=== PATIENT | male | born 1985 | race Caucasian/White ===

== ENCOUNTER 2017-03-11 14:10 | Inpatient (IN) | payer SELFPAY ==
[~2017-03-11 14:10] MED LIST: CHLO25 PO
[2017-03-11] MEDS ORDERED: SODIUM CHLORIDE 0.9% FLUSH 10 ML FLUSH IVF PRN (15:00)
[2017-03-11] MEDS ORDERED: LORazepam 2 MG/ML VIAL IV PUSH ONE (15:00)
[2017-03-11 15:30] VITALS: BP 127/81; PULSE 110; RESP 16; TEMP 99; O2SAT 98
--- NOTE | 2017-03-11 15:35 | PD ---
HPI Chief Complaint: Seizure Time Seen by Provider: 15:23 Travel History International Travel<30 days: No Contact w/Intl Traveler<30days: No History of Present Illness HPI Patient is a 31-year-old male presenting to emergency for evaluation of a possible seizure. Patient states that he was walking on a when he this morning when he suddenly felt out of it. He states he did not fall to the ground was on the ground when he aroused. Patient reports drinking alcohol on a daily basis, normally 812 beers however over the last day he has had 24. He has not had any alcohol today and states that he was walking to the convenience store contemplating whether or not to buy more alcohol or get into rehabilitation. Patient states that he does feel depressed but denies any suicidal or homicidal ideations. He states he considered suicide in high school but never attempted it. He does report his father passing away recently which is upsetting to him. Patient currently denies any chest pain, shortness of breath, headache, neck pain, back pain. He reports vomiting and dry heaving yesterday, he complains of mild epigastric pain. [facility] Past Medical History Diminished Hearing: No Seizures: Yes Social History Alcohol Use: Yes (2 DRINKS/DAILY) Tobacco Use: No Substance Use: Yes (MARIJUANA OCC) Allergies-Medications (Allergen,Severity, Reaction): Coded Allergies: No Known Allergies (Verified Adverse Reaction, Unknown, 03/11/17) Reported Meds & Prescriptions Reported Meds & Active Scripts Active No Active Prescriptions or Reported Medications Review of Systems Except as stated in HPI: all other systems reviewed are Neg General / Constitutional: No: Fever Eyes: No: Blurred Vision HENT: No: Headaches, Neck Pain Cardiovascular: No: Chest Pain or Discomfort Respiratory: No: Shortness of Breath Gastrointestinal: Positive: Nausea, Vomiting, Abdominal Pain (epigastric) Genitourinary: No: Dysuria Musculoskeletal: No: Myalgias Skin: Positive Rash Neurologic: Positive: Syncope (possible seizure), No: Focal Abnormalities, Change in Mentation, Sensory Disturbance Physical Exam Narrative GENERAL: Well-developed, well-nourished, alert male. Resting comfortably in no acute distress. SKIN: Warm and dry. Petechial rash to patient's face. HEAD: Atraumatic. Normocephalic. EYES: Pupils equal and round. No scleral icterus. No injection or drainage. ENT: No nasal bleeding or discharge. Mucous membranes pink and moist. NECK: Trachea midline. No JVD. CARDIOVASCULAR: Mildly tachycardic RESPIRATORY: No accessory muscle use. Clear to auscultation. Breath sounds equal bilaterally. GASTROINTESTINAL: Abdomen soft, mildly tender to palpation epigastric region, nondistended. Hepatic and splenic margins not palpable. Positive bowel sounds, no rebound, no guarding. MUSCULOSKELETAL: Extremities without clubbing, cyanosis, or edema. No obvious deformities. NEUROLOGICAL: Awake and alert. No obvious cranial nerve deficits. Motor grossly within normal limits. Five out of 5 muscle strength in the arms and legs. Normal speech. PSYCHIATRIC: Appropriate mood and affect; insight and judgment normal. Data Data Last Documented VS Vital Signs Date Time Temp Pulse Resp B/P (MAP) Pulse Ox O2 Delivery O2 Flow Rate FiO2 03/11/17 17:26 97.9 89 16 124/75 (91) 98 Room Air Orders Orders Complete Blood Count With Diff (03/11/17 14:56) Comprehensive Metabolic Panel (03/11/17 14:56) Iv Access Insert/Monitor (03/11/17 14:56) Ecg Monitoring (03/11/17 14:56) Psych Screen (03/11/17 14:56) Sodium Chloride 0.9% Flush (Ns Flush) (03/11/17 15:00) Lorazepam Inj (Ativan Inj) (03/11/17 15:00) Drug Screen, Random Urine (03/11/17 14:56) Alcohol (Ethanol) (03/11/17 14:56) Salicylates (Aspirin) (03/11/17 14:56) Tylenol (Acetaminophen) (03/11/17 14:56) Ct Brain W/O Iv Contrast(Rout) (03/11/17 ) Electrocardiogram (03/11/17 ) Sodium Chlor 0.9% 1000 Ml Inj (Ns 1000 M (03/11/17 16:00) Urinalysis - C+S If Indicated (03/11/17 17:05) Lipase (03/11/17 17:05) Admit Order (Ed Use Only) (03/11/17 18:40) Labs Laboratory Tests Test 03/11/17 16:00 03/11/17 17:11 White Blood Count 21.9 TH/MM3 Red Blood Count 4.85 MIL/MM3 Hemoglobin 15.8 GM/DL Hematocrit 46.5 % Mean Corpuscular Volume 95.9 FL Mean Corpuscular Hemoglobin 32.6 PG Mean Corpuscular Hemoglobin Concent 34.0 % Red Cell Distribution Width 13.6 % Platelet Count 303 TH/MM3 Mean Platelet Volume 7.7 FL Neutrophils (%) (Auto) 90.6 % Lymphocytes (%) (Auto) 3.2 % Monocytes (%) (Auto) 5.9 % Eosinophils (%) (Auto) 0.1 % Basophils (%) (Auto) 0.2 % Neutrophils # (Auto) 19.8 TH/MM3 Lymphocytes # (Auto) 0.7 TH/MM3 Monocytes # (Auto) 1.3 TH/MM3 Eosinophils # (Auto) 0.0 TH/MM3 Basophils # (Auto) 0.0 TH/MM3 CBC Comment DIFF FINAL Differential Comment Total Protein 8.5 GM/DL Alkaline Phosphatase 64 U/L Total Bilirubin 1.2 MG/DL Anion Gap 10 MEQ/L Estimat Glomerular Filtration Rate 82 ML/MIN Salicylates Level LESS THAN 1.7 MG/DL Acetaminophen Level LESS THAN 2.0 MCG/ML Ethyl Alcohol Level LESS THAN 3 MG/DL Urine Color YELLOW Urine Turbidity HAZY Urine pH 5.5 Urine Specific [place] 1.024 Urine Protein 100 mg/dL Urine Glucose (UA) NEG mg/dL Urine Ketones 40 mg/dL Urine Occult Blood TRACE Urine Nitrite NEG Urine Bilirubin NEG Urine Urobilinogen LESS THAN 2.0 MG/DL Urine Leukocyte Esterase NEG Urine RBC 1 /hpf Urine WBC 4 /hpf Urine Squamous Epithelial Cells <1 /hpf Urine Amorphous Sediment OCC Urine Hyaline Casts 6 /lpf Urine Mucus FEW /lpf Microscopic Urinalysis Comment CULT NOT INDICATED Urine Opiates Screen NEG Urine Barbiturates Screen NEG Urine Amphetamines Screen NEG Urine Benzodiazepines Screen NEG Urine Cocaine Screen NEG Urine Cannabinoids Screen NEG MDM Medical Decision Making Medical Screen Exam Complete: Yes Emergency Medical Condition: Yes Interpretation(s) Last Impressions Head CT 03/11/17 0000 Signed Impressions: Service Date/Time: Saturday, March 11, 2017 16:54 - CONCLUSION: Negative noncontrast head CT. Sahil Prater MD Laboratory Tests Test 03/11/17 16:00 03/11/17 17:11 White Blood Count 21.9 TH/MM3 Red Blood Count 4.85 MIL/MM3 Hemoglobin 15.8 GM/DL Hematocrit 46.5 % Mean Corpuscular Volume 95.9 FL Mean Corpuscular Hemoglobin 32.6 PG Mean Corpuscular Hemoglobin Concent 34.0 % Red Cell Distribution Width 13.6 % Platelet Count 303 TH/MM3 Mean Platelet Volume 7.7 FL Neutrophils (%) (Auto) 90.6 % Lymphocytes (%) (Auto) 3.2 % Monocytes (%) (Auto) 5.9 % Eosinophils (%) (Auto) 0.1 % Basophils (%) (Auto) 0.2 % Neutrophils # (Auto) 19.8 TH/MM3 Lymphocytes # (Auto) 0.7 TH/MM3 Monocytes # (Auto) 1.3 TH/MM3 Eosinophils # (Auto) 0.0 TH/MM3 Basophils # (Auto) 0.0 TH/MM3 CBC Comment DIFF FINAL Differential Comment Total Protein 8.5 GM/DL Alkaline Phosphatase 64 U/L Total Bilirubin 1.2 MG/DL Anion Gap 10 MEQ/L Estimat Glomerular Filtration Rate 82 ML/MIN Lipase 87 U/L Salicylates Level LESS THAN 1.7 MG/DL Acetaminophen Level LESS THAN 2.0 MCG/ML Ethyl Alcohol Level LESS THAN 3 MG/DL Urine Color YELLOW Urine Turbidity HAZY Urine pH 5.5 Urine Specific [place] 1.024 Urine Protein 100 mg/dL Urine Glucose (UA) NEG mg/dL Urine Ketones 40 mg/dL Urine Occult Blood TRACE Urine Nitrite NEG Urine Bilirubin NEG Urine Urobilinogen LESS THAN 2.0 MG/DL Urine Leukocyte Esterase NEG Urine RBC 1 /hpf Urine WBC 4 /hpf Urine Squamous Epithelial Cells <1 /hpf Urine Amorphous Sediment OCC Urine Hyaline Casts 6 /lpf Urine Mucus FEW /lpf Microscopic Urinalysis Comment CULT NOT INDICATED Urine Opiates Screen NEG Urine Barbiturates Screen NEG Urine Amphetamines Screen NEG Urine Benzodiazepines Screen NEG Urine Cocaine Screen NEG Urine Cannabinoids Screen NEG Vital Signs Date Time Temp Pulse Resp B/P (MAP) Pulse Ox O2 Delivery O2 Flow Rate FiO2 03/11/17 17:26 97.9 89 16 124/75 (91) 98 Room Air 03/11/17 16:14 96 17 132/78 (96) 99 Room Air 03/11/17 16:05 93 16 97 Room Air 03/11/17 15:30 99.0 110 16 127/81 (96) 98 Differential Diagnosis Seizure-like activity versus syncope versus arrhythmia versus intoxication versus electrolyte abnormality versus withdrawal versus other Narrative Course Patient presented for evaluation after seizure-like activity/syncopal episode. He is a chronic alcoholic, he is requesting rehabilitation he reports depression but no suicidal ideations. He reports epigastric abdominal pain but no other complaints at this time. Labs and imaging ordered and pending. CBC with a white count 21.9 with left shift. Chemistry is not completely resolved in the computer however lab was able to provide a printout. Sodium 133, no other acute abnormalities noted this time. Urine drug screen is negative Salicylate, acetaminophen and alcohol are all negative. Patient was given IV fluids, Zofran, Ativan. He has been resting comfortably but continues to state he feels off. Patient will be admitted under observation due to the seizure-like activity/syncopal episode. Discussed with Dr. Linn who accepted admission, orders placed. Diagnosis Primary Impression: Seizure-like activity Additional Impression: Alcoholism Admitting Information Admitting Physician Requests: Observation Scripts No Active Prescriptions or Reported Meds Condition: Stable Alisha Flores [facility] Mar 11, 2017 15:35
[2017-03-11] MEDS ORDERED: SODIUM CHLOR 0.9% 1000 ML INJ 1,000 ML IV ONE (16:00)
[2017-03-11 16:14] VITALS: BP 132/78; PULSE 96; RESP 17; O2SAT 99
[2017-03-11 16:45] LABS: AUTOMATED NEUTROPHIL # 19.8 TH/MM3 (1.8-7.7); BASOPHIL % 0.2 % (0.0-2.0); EOSINOPHIL % 0.1 % (0.0-4.0); HEMATOCRIT 46.5 % (39.0-51.0); HEMO FLAGS DIFF FINAL; LYMPH % 3.2 % (9.0-44.0); LYMPHOCYTE # 0.7 TH/MM3 (1.0-4.8); MEAN CELL VOLUME 95.9 FL (80.0-100.0); MEAN CORPUSCULAR HEMOGLOBIN 32.6 PG (27.0-34.0); MONO % 5.9 % (0.0-8.0); NEUT % 90.6 % (16.0-70.0); PLATELET COUNT 303 TH/MM3 (150-450); RED BLOOD COUNT 4.85 MIL/MM3 (4.50-5.90); RED CELL DISTRIBUTION WIDTH 13.6 % (11.6-17.2); WHITE BLOOD COUNT 21.9 TH/MM3 (4.0-11.0)
[2017-03-11 17:02] LABS: ALT (GPT) 26 U/L (12-78); ANION GAP 10 MEQ/L (5-15); AST (GOT) 36 U/L (15-37); BICARBONATE 24.9 MEQ/L (21.0-32.0); BLOOD UREA NITROGEN 15 MG/DL (7-18); CHLORIDE 98 MEQ/L (98-107); GLOMERULAR FILTRATION RATE 82 ML/MIN (>89); POTASSIUM 4.1 MEQ/L (3.5-5.1); SODIUM (NA) 133 MEQ/L (136-145)
[2017-03-11 17:03] LABS: ACETAMINOPHEN LESS THAN 2.0 MCG/ML (10.0-30.0); ALCOHOL LESS THAN 3 MG/DL (0-5); ALKALINE PHOSPHATASE 64 U/L (45-117); TOTAL BILIRUBIN ADULT 1.2 MG/DL (0.2-1.0)
--- NOTE | 2017-03-11 17:07 | RADRPT ---
EXAM DATE/TIME: 03/11/2017 16:54 [facility] COMPARISON: No previous studies available for comparison. INDICATIONS : Syncope. RADIATION DOSE: 33.48 CTDIvol (mGy) MEDICAL HISTORY : Seizures. SURGICAL HISTORY : None. ENCOUNTER: Initial ACUITY: 1 day PAIN SCALE: 0/10 LOCATION: cranial TECHNIQUE: Multiple contiguous axial images were obtained of the head. Using automated exposure control and adj ustment of the mA and/or kV according to patient size, radiation dose was kept as low as reasonably a chievable to obtain optimal diagnostic quality images. DICOM format image data is available electro nically for review and comparison. FINDINGS: CEREBRUM: The ventricles are normal for age. No evidence of midline shift, mass lesion, hemorrhage or acute in farction. No extra-axial fluid collections are seen. POSTERIOR FOSSA: The cerebellum and brainstem are intact. The 4th ventricle is midline. The cerebellopontine angle i s unremarkable. EXTRACRANIAL: The visualized portion of the orbits is intact. SKULL: The calvaria is intact. No evidence of skull fracture. CONCLUSION: Negative noncontrast head CT. Sahil Prater MD on March 11, 2017 at 17:05 Board Certified Radiologist. This report was verified electronically.
[2017-03-11 17:26] VITALS: BP 124/75; PULSE 89; RESP 16; TEMP 97.9; O2SAT 98
[2017-03-11 17:53] LABS: BLOOD, URINE TRACE (NEG); COMMENT (UR) CULT NOT INDICATED; CULTURE IF INDICATED CULT NOT INDICATED; GLUCOSE,URINE NEG (NEG); HYALINE CAST, URINE 6 /lpf (RARE); KETONE, URINE 40 mg/dL (NEG); MUCUS URINE FEW /lpf (OCC); NITRITE,URINE NEG (NEG); PH, URINE 5.5 (5.0-8.5); SQUAMOUS EPITHELIAL CELL URINE <1 /hpf (0-5); URINE COLOR YELLOW (YELLW/STRAW)
[2017-03-11 18:59] VITALS: BP 116/72; PULSE 89; RESP 20; O2SAT 99
[2017-03-11] MEDS ORDERED: ONDANSETRON HCL 4 MG/2 ML VIAL IVP PRN (19:00)
[2017-03-11] MEDS ORDERED: HALOPERIDOL LACTATE 5 MG/ML AMP IM PRN (19:00)
[2017-03-11] MEDS ORDERED: ACETAMINOPHEN 325 MG TAB PO PRN (19:00)
[2017-03-11] MEDS ORDERED: LORazepam 2 MG TAB PO PRN (19:00)
[2017-03-11] MEDS ORDERED: LORazepam 2 MG/ML VIAL IV PUSH PRN ×4 (19:00)
[2017-03-11] MEDS ORDERED: LACTULOSE SYRUP 20 GM/30 ML CUP PO PRN (19:00)
[2017-03-11] MEDS ORDERED: SENNOSIDES 8.6 MG TAB PO PRN (19:00)
[2017-03-11] MEDS ORDERED: MAGNESIUM HYDROXIDE SUSP 30 ML CUP PO PRN (19:00)
[2017-03-11] MEDS ORDERED: BISACODYL 10 MG SUPP RECTAL PRN (19:00)
[2017-03-11] MEDS ORDERED: FLUMAZENIL 0.5 MG/5 ML VIAL IV PUSH PRN (19:00)
[2017-03-11] MEDS ORDERED: THIAMINE INJ 100 MG in SODIUM CHLORIDE 0.9% INJ 100 ML IV ONE (19:00)
[2017-03-11] MEDS ORDERED: LORazepam 1 MG TAB PO PRN (19:00)
[2017-03-11] MEDS ORDERED: SODIUM CHLORIDE 0.9% FLUSH 10 ML FLUSH IV FLUSH PRN (19:00)
[2017-03-11] MEDS: SODIUM CHLOR 0.9% 1000 ML INJ 1,000 ML IV SCH (19:10)
[2017-03-11] MEDS: DOCUSATE SODIUM 50 MG/SENNA 8.6 MG TAB PO SCH (19:10)
[2017-03-11] MEDS: SODIUM CHLORIDE 0.9% FLUSH 10 ML FLUSH IV FLUSH SCH (19:10)
--- NOTE | 2017-03-11 19:32 | PD ---
Data Data Last Documented VS Vital Signs Date Time Temp Pulse Resp B/P (MAP) Pulse Ox O2 Delivery O2 Flow Rate FiO2 03/11/17 17:26 97.9 89 16 124/75 (91) 98 Room Air Orders Orders Complete Blood Count With Diff (03/11/17 14:56) Comprehensive Metabolic Panel (03/11/17 14:56) Iv Access Insert/Monitor (03/11/17 14:56) Ecg Monitoring (03/11/17 14:56) Psych Screen (03/11/17 14:56) Sodium Chloride 0.9% Flush (Ns Flush) (03/11/17 15:00) Lorazepam Inj (Ativan Inj) (03/11/17 15:00) Drug Screen, Random Urine (03/11/17 14:56) Alcohol (Ethanol) (03/11/17 14:56) Salicylates (Aspirin) (03/11/17 14:56) Tylenol (Acetaminophen) (03/11/17 14:56) Ct Brain W/O Iv Contrast(Rout) (03/11/17 ) Electrocardiogram (03/11/17 ) Sodium Chlor 0.9% 1000 Ml Inj (Ns 1000 M (03/11/17 16:00) Urinalysis - C+S If Indicated (03/11/17 17:05) Lipase (03/11/17 17:05) Admit Order (Ed Use Only) (03/11/17 18:40) Labs Laboratory Tests Test 03/11/17 16:00 03/11/17 17:11 White Blood Count 21.9 TH/MM3 Red Blood Count 4.85 MIL/MM3 Hemoglobin 15.8 GM/DL Hematocrit 46.5 % Mean Corpuscular Volume 95.9 FL Mean Corpuscular Hemoglobin 32.6 PG Mean Corpuscular Hemoglobin Concent 34.0 % Red Cell Distribution Width 13.6 % Platelet Count 303 TH/MM3 Mean Platelet Volume 7.7 FL Neutrophils (%) (Auto) 90.6 % Lymphocytes (%) (Auto) 3.2 % Monocytes (%) (Auto) 5.9 % Eosinophils (%) (Auto) 0.1 % Basophils (%) (Auto) 0.2 % Neutrophils # (Auto) 19.8 TH/MM3 Lymphocytes # (Auto) 0.7 TH/MM3 Monocytes # (Auto) 1.3 TH/MM3 Eosinophils # (Auto) 0.0 TH/MM3 Basophils # (Auto) 0.0 TH/MM3 CBC Comment DIFF FINAL Differential Comment Total Protein 8.5 GM/DL Alkaline Phosphatase 64 U/L Total Bilirubin 1.2 MG/DL Anion Gap 10 MEQ/L Estimat Glomerular Filtration Rate 82 ML/MIN Lipase 87 U/L Salicylates Level LESS THAN 1.7 MG/DL Acetaminophen Level LESS THAN 2.0 MCG/ML Ethyl Alcohol Level LESS THAN 3 MG/DL Urine Color YELLOW Urine Turbidity HAZY Urine pH 5.5 Urine Specific [place] 1.024 Urine Protein 100 mg/dL Urine Glucose (UA) NEG mg/dL Urine Ketones 40 mg/dL Urine Occult Blood TRACE Urine Nitrite NEG Urine Bilirubin NEG Urine Urobilinogen LESS THAN 2.0 MG/DL Urine Leukocyte Esterase NEG Urine RBC 1 /hpf Urine WBC 4 /hpf Urine Squamous Epithelial Cells <1 /hpf Urine Amorphous Sediment OCC Urine Hyaline Casts 6 /lpf Urine Mucus FEW /lpf Microscopic Urinalysis Comment CULT NOT INDICATED Urine Opiates Screen NEG Urine Barbiturates Screen NEG Urine Amphetamines Screen NEG Urine Benzodiazepines Screen NEG Urine Cocaine Screen NEG Urine Cannabinoids Screen NEG MDM Supervised Visit with CARLOS: Yes Narrative Course The history, exam, and medical decision-making in the associated mid-level provider note were completed with my assistance. I reviewed and agree with the findings presented. I attest that I had a [id number] encounter with the patient on the same day, and personally performed and documented my assessment and findings in the medical record. *My assessment and Findings: 31 year-old woman, alcohol withdrawal seizures, looks somewhat ill, pale, little bit tremulous. Also somewhat depressed. Labs are overall unremarkable except for some leukocytosis. I think the patient would benefit from admission for alcohol withdrawal, seizures. Diagnosis Primary Impression: Seizure-like activity Additional Impression: Alcoholism Scripts No Active Prescriptions or Reported Meds Condition: Stable Zhang Miles MD Mar 11, 2017 19:32
--- NOTE | 2017-03-11 19:40 | RADRPT ---
EXAM DATE/TIME: 03/11/2017 19:21 [facility] COMPARISON: No previous studies available for comparison. INDICATIONS : Shortness of breath. MEDICAL HISTORY : None. SURGICAL HISTORY : None. ENCOUNTER: Initial ACUITY: 1 day PAIN SCORE: 0/10 LOCATION: Bilateral chest FINDINGS: A single view of the chest demonstrates the lungs to be symmetrically aerated without evidence of mas s, infiltrate or effusion. The cardiomediastinal contours are unremarkable. Osseous structures are intact. CONCLUSION: No evidence of acute cardiopulmonary disease. Sahil Prater MD on March 11, 2017 at 19:38 Board Certified Radiologist. This report was verified electronically.
--- NOTE | 2017-03-11 20:16 | HHI.HP ---
[facility] No Primary Care Physician Admission Diagnosis SEIZURE, ETOH ABUSE Diagnoses: (1) Seizure Diagnosis: Principal (2) Alcohol abuse Diagnosis: Principal (3) Leukocytosis Diagnosis: Principal Travel History International Travel<30 Days: No Contact w/Intl Traveler <30 Da: No Traveled to Known Affected Are: No History of Present Illness This is a 31-year-old male with a PMH of Alcohol Abuse and Alcohol Related Seizure who was brought into the ER by EMS secondary to seizure-like activity. States he normally drinks 8-12 beers/day, last drink at midnight last night. States he was walking to the convenience store today in order to buy alcohol when he had sudden seizure like activity, +tongue biting. Reports previous history of seizure several years ago after not drinking. No further seizure activity since arrival to ER. BP 127/81, HR 110, O2 sat 98% on RA, Temp 99.0. WBC 21.9. Chemistry pending. UA negative. Urine Drug Screen negative. Alcohol negative. CXR with no acute findings. CT Head negative. Review of Systems Except as stated in HPI: all other systems reviewed are Neg ROS: 14 point review of systems otherwise negative. Past Family Social History Past Medical History PMH: Alcohol Abuse and Alcohol Related Seizure Past Surgical History PAST SURGICAL HISTORY: None Allergies: Coded Allergies: No Known Allergies (Verified Adverse Reaction, Unknown, 03/11/17) Family History PAST FAMILY HISTORY: Reviewed. No h/o DM or CAD Social History PAST SOCIAL HISTORY: Drinks 8-12 beers/day. Negative for Tobacco. +Marijuana. Physical Exam Vital Signs Vital Signs Date Time Temp Pulse Resp B/P (MAP) Pulse Ox O2 Delivery O2 Flow Rate FiO2 03/11/17 18:59 89 20 116/72 (87) 99 Room Air 03/11/17 17:26 97.9 89 16 124/75 (91) 98 Room Air 03/11/17 16:14 96 17 132/78 (96) 99 Room Air 03/11/17 16:05 93 16 97 Room Air 03/11/17 15:30 99.0 110 16 127/81 (96) 98 Physical Exam PE: GENERAL: Young white male in no acute distress. HEENT: PERRLA, EOMI. No scleral icterus or conjunctival pallor. No lid lag or facial droop. CARDIOVASCULAR: Regular rate and rhythm. No obvious murmurs to auscultation. No chest tenderness to palpation. RESPIRATORY: No obvious rhonchi or wheezing. Clear to auscultation. Breath sounds equal bilaterally. GASTROINTESTINAL: Abdomen soft, non-tender, nondistended. BS normal. MUSCULOSKELETAL: Extremities without clubbing, cyanosis, or edema. No obvious deformities. NEUROLOGICAL: Awake, alert and oriented x4. No focal neurologic deficits. Moving both upper and lower extremities spontaneously. Laboratory Laboratory Tests Test 03/11/17 16:00 03/11/17 17:11 White Blood Count 21.9 Red Blood Count 4.85 Hemoglobin 15.8 Hematocrit 46.5 Mean Corpuscular Volume 95.9 Mean Corpuscular Hemoglobin 32.6 Mean Corpuscular Hemoglobin Concent 34.0 Red Cell Distribution Width 13.6 Platelet Count 303 Mean Platelet Volume 7.7 Neutrophils (%) (Auto) 90.6 Lymphocytes (%) (Auto) 3.2 Monocytes (%) (Auto) 5.9 Eosinophils (%) (Auto) 0.1 Basophils (%) (Auto) 0.2 Neutrophils # (Auto) 19.8 Lymphocytes # (Auto) 0.7 Monocytes # (Auto) 1.3 Eosinophils # (Auto) 0.0 Basophils # (Auto) 0.0 CBC Comment DIFF FINAL Differential Comment Total Protein 8.5 Alkaline Phosphatase 64 Total Bilirubin 1.2 Anion Gap 10 Estimat Glomerular Filtration Rate 82 Lipase 87 Salicylates Level LESS THAN 1.7 Acetaminophen Level LESS THAN 2.0 Ethyl Alcohol Level LESS THAN 3 Urine Color YELLOW Urine Turbidity HAZY Urine pH 5.5 Urine Specific [place] 1.024 Urine Protein 100 Urine Glucose (UA) NEG Urine Ketones 40 Urine Occult Blood TRACE Urine Nitrite NEG Urine Bilirubin NEG Urine Urobilinogen LESS THAN 2.0 Urine Leukocyte Esterase NEG Urine RBC 1 Urine WBC 4 Urine Squamous Epithelial Cells <1 Urine Amorphous Sediment OCC Urine Hyaline Casts 6 Urine Mucus FEW Microscopic Urinalysis Comment CULT NOT INDICATED Urine Opiates Screen NEG Urine Barbiturates Screen NEG Urine Amphetamines Screen NEG Urine Benzodiazepines Screen NEG Urine Cocaine Screen NEG Urine Cannabinoids Screen NEG Result Diagram: 12/06/24 1599 Caprini VTE Risk Assessment Caprini VTE Risk Assessment: No/Low Risk (score <= 1) Caprini Risk Assessment Model Point Value = 1 Point Value = 2 Point Value = 3 Point Value = 5 Age 41-60 Minor surgery BMI > 25 kg/m2 Swollen legs Varicose veins or History of unexplained or recurrent spontaneous Oral contraceptives or hormone replacement Sepsis (< 1 month) Serious lung disease, including pneumonia (< 1 month) Abnormal pulmonary function Acute myocardial infarction Congestive heart failure (< 1 month) History of inflammatory bowel disease Medical patient at bed rest Age 61-74 Arthroscopic surgery Major open surgery (> 45 min) Laparoscopic surgery (> 45 min) Malignancy Confined to bed (> 72 hours) Immobilizing plaster cast Central venous access Age >= 75 History of VTE Family history of VTE Factor V Leiden Prothrombin [id number] Lupus anticoagulant Anticardiolipin antibodies Elevated serum homocysteine Heparin-induced thrombocytopenia Other congenital or acquired thrombophilia Stroke (< 1 month) Elective arthroplasty Hip, pelvis, or leg fracture Acute spinal cord injury (< 1 month) Prophylaxis Regimen Total Risk Factor Score Risk Level Prophylaxis Regimen 0-1 Low Early ambulation 2 Moderate Order ONE of the following: *Sequential Compression Device (SCD) *Heparin 5000 units SQ BID 3-4 Higher Order ONE of the following medications: *Heparin 5000 units SQ TID *Enoxaparin/Lovenox 40 mg SQ daily (WT < 150 kg, CrCl > 30 mL/min) *Enoxaparin/Lovenox 30 mg SQ daily (WT < 150 kg, CrCl > 10-29 mL/min) *Enoxaparin/Lovenox 30 mg SQ BID (WT < 150 kg, CrCl > 30 mL/min) AND/OR *Sequential Compression Device (SCD) 5 or more Highest Order ONE of the following medications: *Heparin 5000 units SQ TID (Preferred with Epidurals) *Enoxaparin/Lovenox 40 mg SQ daily (WT < 150 kg, CrCl > 30 mL/min) *Enoxaparin/Lovenox 30 mg SQ daily (WT < 150 kg, CrCl > 10-29 mL/min) *Enoxaparin/Lovenox 30 mg SQ BID (WT < 150 kg, CrCl > 30 mL/min) AND *Sequential Compression Device (SCD) Assessment and Plan Problem List: (1) Seizure ICD Code: R56.9 - Unspecified convulsions (2) Alcohol abuse ICD Code: F10.10 - Alcohol abuse, uncomplicated (3) Leukocytosis ICD Code: D72.829 - Elevated white blood cell count, unspecified Assessment and Plan A/P: 1. Seizure: Alcohol-Related Seizure secondary to Alcohol Withdrawal, last drink midnight last night, Alcohol negative. CT Head w/ no acute findings, images reviewed by me. Will hold off on anticonvulsant medications in light of alcohol-related seizure activity. CIWA, Seizure Precautions. Consult Neurology as needed. 2. Alcohol Abuse: Drinks 8-12 beers/day, sometimes 24, last drink almost 24hrs ago, +withdrawal. CIWA, Seizure Precautions, MVT/Thiamine/Folate replacement. 3. Leukocytosis: WBC 21, likely secondary to seizure activity, no obvious source of infection, U/a negative, CXR w/ no acute findings, images reviewed by me. 4. DVT Prophylaxis: SCD/Teds. 5. Social work for d/c planning as needed. 6. Case discussed w/ ER physician at length. Physician Certification 2 Midnight Certification Type: Admission for Inpatient Services Order for Inpatient Services The services are ordered in accordance with Medicare regulations or non- Medicare payer requirements, as applicable. In the case of services not specified as inpatient-only, they are appropriately provided as inpatient services in accordance with the 2-midnight benchmark. Estimated LOS (days): 2 days is the estimated time the patient will need to remain in the hospital, assuming treatment plan goals are met and no additional complications. Post-Hospital Plan: Not yet determined Kaylee Mari MD Mar 11, 2017 20:16
[2017-03-11 21:06] VITALS: BP 133/72; PULSE 97; RESP 18; TEMP 98.9; O2SAT 100
[2017-03-11 21:45] VITALS: PULSE 91
[2017-03-12 00:28] VITALS: PULSE 81
[2017-03-12 04:13] VITALS: PULSE 77
[2017-03-12 04:32] VITALS: BP 121/83; PULSE 86; RESP 18; TEMP 98; O2SAT 99
[2017-03-12] MEDS: SODIUM CHLOR 0.9% 1000 ML INJ 1,000 ML IV SCH (05:53)
[2017-03-12 07:04] LABS: BASOPHIL % 0.2 % (0.0-2.0); EOSINOPHIL % 0.4 % (0.0-4.0); HEMATOCRIT 42.1 % (39.0-51.0); HEMO FLAGS DIFF FINAL; LYMPH % 14.5 % (9.0-44.0); LYMPHOCYTE # 1.5 TH/MM3 (1.0-4.8); MEAN CELL VOLUME 97.5 FL (80.0-100.0); MEAN CORPUSCULAR HGB CONC 34.8 % (32.0-36.0); MONO % 8.6 % (0.0-8.0); NEUT % 76.3 % (16.0-70.0); PLATELET COUNT 260 TH/MM3 (150-450); RED BLOOD COUNT 4.32 MIL/MM3 (4.50-5.90); RED CELL DISTRIBUTION WIDTH 13.5 % (11.6-17.2); WHITE BLOOD COUNT 10.5 TH/MM3 (4.0-11.0)
[2017-03-12 07:34] LABS: ANION GAP 7 MEQ/L (5-15); AST (GOT) 44 U/L (15-37); BICARBONATE 28.5 MEQ/L (21.0-32.0); BLOOD UREA NITROGEN 12 MG/DL (7-18); CHLORIDE 104 MEQ/L (98-107); GLOMERULAR FILTRATION RATE 89 ML/MIN (>89); POTASSIUM 3.2 MEQ/L (3.5-5.1); SODIUM (NA) 139 MEQ/L (136-145)
[2017-03-12 07:37] LABS: ALKALINE PHOSPHATASE 51 U/L (45-117); ALT (GPT) 28 U/L (12-78); TOTAL BILIRUBIN ADULT 1.7 MG/DL (0.2-1.0)
[2017-03-12 08:18] VITALS: BP 108/68; PULSE 91; RESP 21; TEMP 98.7; O2SAT 98
[2017-03-12] MEDS ORDERED: POTASSIUM CHLORIDE 20 MEQ CONTROLLED RELEASE TAB PO ONE (08:45)
[2017-03-12] MEDS: DOCUSATE SODIUM 50 MG/SENNA 8.6 MG TAB PO SCH (08:47)
[2017-03-12] MEDS: SODIUM CHLORIDE 0.9% FLUSH 10 ML FLUSH IV FLUSH SCH (08:48)
[2017-03-12] MEDS ORDERED: MULTIVITAMINS/MINERALS THERAPEUTIC TAB PO SCH (09:00)
[2017-03-12] MEDS ORDERED: THIAMINE HCL 100 MG TAB PO SCH (09:00)
[2017-03-12] MEDS ORDERED: FOLIC ACID 1 MG TAB PO SCH (09:00)
[2017-03-12] MEDS ORDERED: FOLI1TAB6 PO (10:46)
[2017-03-12] MEDS ORDERED: THERM PO (10:46)
[2017-03-12] MEDS ORDERED: THIA100 PO (10:46)
--- NOTE | 2017-03-12 11:04 | HHI.PR ---
Subjective Remarks This is a 31-year-old male with a PMH of Alcohol Abuse and Alcohol Related Seizure who was brought into the ER by EMS secondary to seizure-like activity. States he normally drinks 8-12 beers/day, last drink at midnight last night. States he was walking to the convenience store today in order to buy alcohol when he had sudden seizure like activity, +tongue biting. Reports previous history of seizure several years ago after not drinking. No further seizure activity since arrival to ER. BP 127/81, HR 110, O2 sat 98% on RA, Temp 99.0. WBC 21.9. Chemistry pending. UA negative. Urine Drug Screen negative. Alcohol negative. CXR with no acute findings. CT Head negative. Follow up on patient with seizure, suspect EtOH related. Patient seen and examined. Patient states he normally drinks 12-13 beers daily sometimes more and has been doing so for the past 12 or 13 years. States he had not had any alcohol in 12-15 hours prior to his seizure activity. Denies any previous alcohol related seizure activity but states he usually keeps alcohol for in the morning. He is interested in alcohol cessation. He currently lives at his father's estate in [place] who in December. He is not currently employed. wants to cut back on alcohol usually drinks continuously all day did not do that yesterday Objective Vitals Vital Signs Date Time Temp Pulse Resp B/P (MAP) Pulse Ox O2 Delivery O2 Flow Rate FiO2 03/12/17 08:18 98.7 91 21 108/68 (81) 98 03/12/17 04:32 98.0 86 18 121/83 (96) 99 03/12/17 04:13 77 03/12/17 00:28 81 03/11/17 21:45 91 03/11/17 21:06 98.9 97 18 133/72 (92) 100 03/11/17 20:29 03/11/17 18:59 89 20 116/72 (87) 99 Room Air 03/11/17 17:26 97.9 89 16 124/75 (91) 98 Room Air 03/11/17 16:14 96 17 132/78 (96) 99 Room Air 03/11/17 16:05 93 16 97 Room Air 03/11/17 15:30 99.0 110 16 127/81 (96) 98 I/O 03/11/17 03/11/17 03/11/17 03/12/17 03/12/17 03/12/17 07:00 15:00 23:00 07:00 15:00 23:00 Intake Total 1000 ml Output Total 600 ml Balance 400 ml Intake IV Total 1000 ml Output Urine Total 600 ml # Voids 1 # Bowel Movements 0 Result Diagram: 03/12/17 0613 03/12/17 0613 Other Results Laboratory Tests Test 03/11/17 16:00 03/11/17 17:11 03/12/17 06:13 White Blood Count 21.9 TH/MM3 10.5 TH/MM3 Red Blood Count 4.85 MIL/MM3 4.32 MIL/MM3 Hemoglobin 15.8 GM/DL 14.7 GM/DL Hematocrit 46.5 % 42.1 % Mean Corpuscular Volume 95.9 FL 97.5 FL Mean Corpuscular Hemoglobin 32.6 PG 34.0 PG Mean Corpuscular Hemoglobin Concent 34.0 % 34.8 % Red Cell Distribution Width 13.6 % 13.5 % Platelet Count 303 TH/MM3 260 TH/MM3 Mean Platelet Volume 7.7 FL 8.0 FL Neutrophils (%) (Auto) 90.6 % 76.3 % Lymphocytes (%) (Auto) 3.2 % 14.5 % Monocytes (%) (Auto) 5.9 % 8.6 % Eosinophils (%) (Auto) 0.1 % 0.4 % Basophils (%) (Auto) 0.2 % 0.2 % Neutrophils # (Auto) 19.8 TH/MM3 8.0 TH/MM3 Lymphocytes # (Auto) 0.7 TH/MM3 1.5 TH/MM3 Monocytes # (Auto) 1.3 TH/MM3 0.9 TH/MM3 Eosinophils # (Auto) 0.0 TH/MM3 0.0 TH/MM3 Basophils # (Auto) 0.0 TH/MM3 0.0 TH/MM3 CBC Comment DIFF FINAL DIFF FINAL Differential Comment Total Protein 8.5 GM/DL 7.1 GM/DL Alkaline Phosphatase 64 U/L 51 U/L Total Bilirubin 1.2 MG/DL 1.7 MG/DL Anion Gap 10 MEQ/L 7 MEQ/L Estimat Glomerular Filtration Rate 82 ML/MIN 89 ML/MIN Lipase 87 U/L Salicylates Level LESS THAN 1.7 MG/DL Acetaminophen Level LESS THAN 2.0 MCG/ML Ethyl Alcohol Level LESS THAN 3 MG/DL Urine Color YELLOW Urine Turbidity HAZY Urine pH 5.5 Urine Specific Morris 1.024 Urine Protein 100 mg/dL Urine Glucose (UA) NEG mg/dL Urine Ketones 40 mg/dL Urine Occult Blood TRACE Urine Nitrite NEG Urine Bilirubin NEG Urine Urobilinogen LESS THAN 2.0 MG/DL Urine Leukocyte Esterase NEG Urine RBC 1 /hpf Urine WBC 4 /hpf Urine Squamous Epithelial Cells <1 /hpf Urine Amorphous Sediment OCC Urine Hyaline Casts 6 /lpf Urine Mucus FEW /lpf Microscopic Urinalysis Comment CULT NOT INDICATED Urine Opiates Screen NEG Urine Barbiturates Screen NEG Urine Amphetamines Screen NEG Urine Benzodiazepines Screen NEG Urine Cocaine Screen NEG Urine Cannabinoids Screen NEG Blood Urea Nitrogen 12 MG/DL Creatinine 0.98 MG/DL Random Glucose 79 MG/DL Albumin 3.5 GM/DL Calcium Level 8.3 MG/DL Aspartate Amino Transf (AST/SGOT) 44 U/L Alanine Aminotransferase (ALT/SGPT) 28 U/L Sodium Level 139 MEQ/L Potassium Level 3.2 MEQ/L Chloride Level 104 MEQ/L Carbon Dioxide Level 28.5 MEQ/L Imaging Last Impressions Head CT 03/11/17 0000 Signed Impressions: Service Date/Time: Saturday, March 11, 2017 16:54 - CONCLUSION: Negative noncontrast head CT. Sahil Prater MD Chest X-Ray 03/11/17 0000 Signed Impressions: Service Date/Time: Saturday, March 11, 2017 19:21 - CONCLUSION: No evidence of acute cardiopulmonary disease. Sahil Prater MD Objective Remarks GENERAL: Well-nourished, well-developed patient in NAD. Awake and alert. HEAD: Normocephalic. Atraumatic. EYES: Pupils equal and round. No scleral icterus. No injection or drainage. ENT: No nasal bleeding or discharge. Mucous membranes pink and moist. NECK: Trachea midline. CARDIOVASCULAR: Regular rate and rhythm. S1, S2 noted. No murmur appreciated. RESPIRATORY: Nonlabored. Clear to auscultation. Breath sounds equal bilaterally. GASTROINTESTINAL: Abdomen soft, non-tender, nondistended. Normoactive bowel sounds x4. MUSCULOSKELETAL: No obvious deformities. Extremities without clubbing, cyanosis , or edema. NEUROLOGICAL: Awake and alert. Motor grossly within normal limits. 5/5 muscle strength in bilateral upper and lower extremities. Normal speech. PSYCHIATRIC: Appropriate mood and affect; insight and judgment normal. Procedures none Medications and IVs Current Medications Medications (Trade) Dose Ordered Sig/Brad Route Start Time Stop Time Status Last Admin (Folate) 1 mg DAILY PO 03/12/17 09:00 03/17/17 08:59 03/12/17 08:47 (Vitamin B1) 100 mg DAILY PO 03/12/17 09:00 03/12/17 08:47 (Theragran M Tab) 1 tab DAILY PO 03/12/17 09:00 03/17/17 08:59 03/12/17 08:47 (Romazicon Inj) 0.2 mg Q1M PRN IV PUSH 03/11/17 19:00 (Ativan) 1 mg Q4H PRN PO 03/11/17 19:00 (Ativan Inj) 1 mg Q4H PRN IV PUSH 03/11/17 19:00 03/11/17 19:11 (Ativan) 2 mg Q2H PRN PO 03/11/17 19:00 03/12/17 00:29 (Ativan Inj) 2 mg Q2H PRN IV PUSH 03/11/17 19:00 (Ativan Inj) 2 mg Q1H PRN IV PUSH 03/11/17 19:00 (Ativan Inj) 2 mg Q15M PRN IV PUSH 03/11/17 19:00 (Haldol Inj) 2 mg Q15M PRN IM 03/11/17 19:00 Sodium Chloride 1,000 ml @ 100 mls/hr Q10H IV 03/11/17 18:49 03/12/17 05:53 (NS Flush) 2 ml UNSCH PRN IV FLUSH 03/11/17 19:00 (NS Flush) 2 ml BID IV FLUSH 03/11/17 21:00 (Zofran Inj) 4 mg Q6H PRN IVP 03/11/17 19:00 (Tylenol) 650 mg Q6H PRN PO 03/11/17 19:00 (Roxicodone) 10 mg Q4H PRN PO 03/11/17 19:00 (Roxicodone) 5 mg Q4H PRN PO 03/11/17 19:00 (Shona-Colace) 1 tab BID PO 03/11/17 21:00 (Milk Of Magnesia Liq) 30 ml Q12H PRN PO 03/11/17 19:00 (Senokot) 17.2 mg Q12H PRN PO 03/11/17 19:00 (Dulcolax Supp) 10 mg DAILY PRN RECTAL 03/11/17 19:00 (Lactulose Liq) 30 ml DAILY PRN PO 03/11/17 19:00 Urinary Catheter: No Vascular Central Line Catheter: No A/P Problem List: (1) Seizure ICD Code: R56.9 - Unspecified convulsions (2) Alcohol abuse ICD Code: F10.10 - Alcohol abuse, uncomplicated (3) Leukocytosis ICD Code: D72.829 - Elevated white blood cell count, unspecified Assessment and Plan 31-year-old male without any significant past medical history who presented with alcohol related seizure secondary to alcohol withdrawal. Seizure - Alcohol related secondary to alcohol withdrawal - Patient reports drinking 12-13 beers daily and has done so for 10+ years, reports that having any alcohol for 12-15 hours prior to seizure activity. EtOH negative at admission - No recurrence of seizures since admission - CT of the head with no acute findings, images reviewed by me. - Seizure precautions Alcohol abuse - Patient interested in alcohol cessation. Case management consulted. - [facility] protocol - Continue on thiamine, folate and multivitamin daily discussed as much with patient. - Advised patient on complete alcohol cessation. Patient understands. Hypokalemia - Secondary to alcohol abuse - Replete - Patient given lab slip to follow-up with PCP in 2-3 days to repeat potassium level Leukocytosis - Reactive, seizure activity - No obvious signs of infection, UA negative, chest x-ray with no acute findings, patient afebrile - Resolved Discussed with patient and Dr. Montenegro Discharge patient to home Condition on discharge: Improved Regular Diet as tolerated Activity restrictions: no driving, swimming alone or caring for young children unassisted Rx written: Librium, Thiamine, Folate and MVI Follow-up with primary care physician in 2-3 days, patient referred to [facility] Discharge Planning case management Attending Statement The exam, history, and the medical decision-making described in the above note were completed with the assistance of the mid-level provider. I reviewed and agree with the findings presented. I attest that I had a [id number] encounter with the patient on the same day, and personally performed and documented my assessment and findings in the medical record. Clementine Elias Mar 12, 2017 11:04 Jl Montenegro DO Mar 12, 2017 11:16
--- NOTE | 2017-03-12 11:07 | HHI.DCPOC ---
Discharge Care Plan Diagnosis: (1) Seizure-like activity (2) Hypokalemia (3) Alcoholism (4) Leukocytosis (5) Seizure (6) Alcohol abuse Goals to Promote Your Health * To prevent worsening of your condition and complications * To maintain your health at the optimal level Directions to Meet Your Goals Please refrain from all alcohol use. Activity restrictions include no driving, swimming alone, caring for children unassisted Take your medications as prescribed Follow your dietary instruction Follow activity as directed Keep your appointments as scheduled Take your immunizations and boosters as scheduled If your symptoms worsen call your PCP, if no PCP go to Urgent Care Center or Emergency Room Smoking is Dangerous to Your Health. Avoid second hand smoke Call the 24-hour hour crisis hotline for domestic abuse at Clementine Elias Mar 12, 2017 11:07
[2017-03-12] MEDS ORDERED: CHLO25CA9 PO (11:21)
--- NOTE | 2017-03-12 11:25 | HHI.DS ---
Discharge Summary Admission Date Mar 11, 2017 at 18:52 Discharge Date: Mar 12, 2017 Admitting Diagnosis SEIZURE, ETOH ABUSE (1) Seizure ICD Code: R56.9 - Unspecified convulsions Diagnosis: Secondary (2) Alcohol abuse ICD Code: F10.10 - Alcohol abuse, uncomplicated Diagnosis: Principal (3) Leukocytosis ICD Code: D72.829 - Elevated white blood cell count, unspecified Diagnosis: Secondary (4) Hypokalemia ICD Code: E87.6 - Hypokalemia Diagnosis: Secondary (5) Alcoholism ICD Code: F10.20 - Alcohol dependence, uncomplicated Diagnosis: Principal Status: Acute (6) Seizure-like activity ICD Code: R56.9 - Unspecified convulsions Diagnosis: Principal Status: Acute Procedures none Brief History - From Admission This is a 31-year-old male with a PMH of Alcohol Abuse and Alcohol Related Seizure who was brought into the ER by EMS secondary to seizure-like activity. States he normally drinks 8-12 beers/day, last drink at midnight last night. States he was walking to the convenience store today in order to buy alcohol when he had sudden seizure like activity, +tongue biting. Reports previous history of seizure several years ago after not drinking. No further seizure activity since arrival to ER. BP 127/81, HR 110, O2 sat 98% on RA, Temp 99.0. WBC 21.9. Chemistry pending. UA negative. Urine Drug Screen negative. Alcohol negative. CXR with no acute findings. CT Head negative. CBC/BMP: 03/12/17 0613 03/12/17 0613 Significant Findings Laboratory Tests Test 03/11/17 16:00 03/11/17 17:11 03/12/17 06:13 White Blood Count 21.9 TH/MM3 (4.0-11.0) Neutrophils (%) (Auto) 90.6 % (16.0-70.0) 76.3 % (16.0-70.0) Lymphocytes (%) (Auto) 3.2 % (9.0-44.0) Neutrophils # (Auto) 19.8 TH/MM3 (1.8-7.7) 8.0 TH/MM3 (1.8-7.7) Lymphocytes # (Auto) 0.7 TH/MM3 (1.0-4.8) Monocytes # (Auto) 1.3 TH/MM3 (0-0.9) Total Protein 8.5 GM/DL (6.4-8.2) Total Bilirubin 1.2 MG/DL (0.2-1.0) 1.7 MG/DL (0.2-1.0) Estimat Glomerular Filtration Rate 82 ML/MIN (>89) Salicylates Level LESS THAN 1.7 MG/DL Acetaminophen Level LESS THAN 2.0 MCG/ML Urine Turbidity HAZY (CLEAR) Urine Protein 100 mg/dL (NEG-TRACE) Urine Ketones 40 mg/dL (NEG) Urine Occult Blood TRACE (NEG) Urine Mucus FEW /lpf (OCC) Red Blood Count 4.32 MIL/MM3 (4.50-5.90) Monocytes (%) (Auto) 8.6 % (0.0-8.0) Calcium Level 8.3 MG/DL (8.5-10.1) Aspartate Amino Transf (AST/SGOT) 44 U/L (15-37) Potassium Level 3.2 MEQ/L (3.5-5.1) Imaging Last Impressions Head CT 03/11/17 0000 Signed Impressions: Service Date/Time: Saturday, March 11, 2017 16:54 - CONCLUSION: Negative noncontrast head CT. Sahil Prater MD Chest X-Ray 03/11/17 0000 Signed Impressions: Service Date/Time: Saturday, March 11, 2017 19:21 - CONCLUSION: No evidence of acute cardiopulmonary disease. Sahil Prater MD PE at Discharge GENERAL: Well-nourished, well-developed patient in NAD. Awake and alert. HEAD: Normocephalic. Atraumatic. EYES: Pupils equal and round. No scleral icterus. No injection or drainage. ENT: No nasal bleeding or discharge. Mucous membranes pink and moist. NECK: Trachea midline. CARDIOVASCULAR: Regular rate and rhythm. S1, S2 noted. No murmur appreciated. RESPIRATORY: Nonlabored. Clear to auscultation. Breath sounds equal bilaterally. GASTROINTESTINAL: Abdomen soft, non-tender, nondistended. Normoactive bowel sounds x4. MUSCULOSKELETAL: No obvious deformities. Extremities without clubbing, cyanosis , or edema. NEUROLOGICAL: Awake and alert. Motor grossly within normal limits. 5/5 muscle strength in bilateral upper and lower extremities. Normal speech. PSYCHIATRIC: Appropriate mood and affect; insight and judgment normal. Hospital Course This is a 31-year-old male with a PMH of Alcohol Abuse and Alcohol Related Seizure who was brought into the ER by EMS secondary to seizure-like activity. States he normally drinks 8-12 beers/day, last drink at midnight last night. States he was walking to the convenience store today in order to buy alcohol when he had sudden seizure like activity, +tongue biting. Reports previous history of seizure several years ago after not drinking. No further seizure activity since arrival to ER. BP 127/81, HR 110, O2 sat 98% on RA, Temp 99.0. WBC 21.9. Chemistry pending. UA negative. Urine Drug Screen negative. Alcohol negative. CXR with no acute findings. CT Head negative. Follow up on patient with seizure, suspect EtOH related. Patient seen and examined. Patient states he normally drinks 12-13 beers daily sometimes more and has been doing so for the past 12 or 13 years. States he had not had any alcohol in 12-15 hours prior to his seizure activity. Denies any previous alcohol related seizure activity but states he usually keeps alcohol for in the morning. He is interested in alcohol cessation. He currently lives at his father's estate in [place] who in December. He is not currently employed. wants to cut back on alcohol usually drinks continuously all day did not do that yesterday Pt Condition on Discharge: Stable Discharge Disposition: Discharge Home Discharge Time: <= 30 minutes Discharge Instructions DIET: Follow Instructions for: As Tolerated, No Restrictions Speech Therapy-Diet Recommends: Regular Activities you can perform: See Additionl Instruction Other Activity Instructions: No driving, no swimming alone, no taking care of small children unassisted Follow up Referrals: PCP Follow-up - 2-3 Days New Orders: BASIC METABOLIC PROF - 2-3 Days New Medications: Chlordiazepoxide HCl (Chlordiazepoxide HCl) 25 Mg Capsule 50 MG PO QID for Alcohol Detox, #40 CAP Folic Acid (Folic Acid) 1 Mg Tablet 1 MG PO DAILY for Nutritional Supplement for 30 Days, #30 TAB Multiple Vitamins W/ Minerals (Thera M Plus) 1 Tab 1 TAB PO DAILY for Nutritional Supplement, #30 TAB Thiamine HCl (Gnp Vitamin B-1) 100 Mg Tab 100 MG PO DAILY for Nutritional Supplement, #30 TAB Jl Montenegro DO Mar 12, 2017 11:25
[2017-03-12 11:31] VITALS: BP 108/64; PULSE 86; RESP 21; TEMP 98.5; O2SAT 98
[2017-03-12 11:57] LABS: MAGNESIUM 2.6 MG/DL (1.5-2.5)
--- NOTE | 2017-03-12 18:44 | EKG ---
Date Performed: 03/11/2017 Time Performed: 16:10:16 PTAGE: 31 years EKG: Sinus rhythm WITH SHORT MS INTERVAL BORDERLINE ECG NO PREVIOUS TRACING DOCTOR: Luis Andersen Interpretating Date/Time 03/12/2017 18:43:11
== END 2017-03-12 12:38 | disposition home or self-care (01) | DRG 101 ==
LOC: NEDAMB 14:10 → NEDA 18:42 → OBSVTOIN 18:52 → NEPHCDU 20:45
PROVIDERS: ADMIT Hospitalist; ATTEND Hospitalist
DX: R56.9 Unspecified convulsions (principal); F10.239 Alcohol dependence with withdrawal, unspecified; D72.829 Elevated white blood cell count, unspecified; E87.6 Hypokalemia
CPT/HCPCS: 70450; 71010; 80053; 80307; 81001; 82948; 83690; 83735; 84100; 85025; 93005; J2060; J3411; J7030